=== PATIENT | female | born 2000 | race American Indian/Alaskan Native ===

== ENCOUNTER 2018-05-19 12:06 | Emergency (ER) | payer OTHER ==
--- NOTE | 2018-05-19 13:46 | RAD ---
Indication: Leg edema. Duplex Doppler sonography of the deep venous system of the left lower extremity deep venous system was performed. Bilaterally the common femoral veins appear patent and compressible. Left proximal greater saphenous vein, proximal deep femoral vein, femoral vein, popliteal vein, posterior tibial veins and peroneal veins appear patent and compressible.Right inguinal lymph nodes are noted measuring up to 2.1 x 0.8 cm. IMPRESSION: NO EVIDENCE OF DEEP VENOUS THROMBOSIS IS IDENTIFIED.
--- NOTE | 2018-05-19 14:14 | ED ---
Lower Extremity - HPI Summary HPI Summary: Patient is a 17-year-old female who presents emergency department for severe left leg pain Times 2-3 days. She does not recall any injuries or provocative factors. Pain is intermittent and sharp in nature. Patient states she currently does not have any pain. Denies back pain. She notes she recently started oral control. Symptoms are mild in severity. No current modifying factors. Denies CP or SOB. No past medical hx. Sxs are mild in severity. - History of Current Complaint Chief Complaint: EDExtremityLower Stated Complaint: CALF PAIN IN LEFT LEG Time Seen by Provider: 05/19/18 12:51 Hx Obtained From: Patient Pain Intensity: 3 - Allergies/Home Medications Allergies/Adverse Reactions: Allergies Allergy/AdvReac Type Severity Reaction Status Date / Time No Known Allergies Allergy Verified 05/19/18 12:19 Home Medications: Home Medications NK [No Home Medications Reported] 05/19/18 [History Confirmed 05/19/18] PMH/Surg Hx/FS Hx/Imm Hx Previously Healthy: Yes Infectious Disease History: No Infectious Disease History: Denies: Traveled Outside the [place] in Last 30 Days - Social History Occupation: Student Lives: Dormitory/Roommates Alcohol Use: None Substance Use Type: Reports: None Smoking Status (MU): Never Smoked Tobacco Review of Systems Constitutional: Negative Cardiovascular: Negative Negative: Chest Pain Respiratory: Negative Negative: Shortness Of Breath Positive: Other - Left leg pain Skin: Negative Negative: Rash, Bruising All Other Systems Reviewed And Are Negative: Yes Physical Exam Triage Information Reviewed: Yes Vital Signs On Initial Exam: Initial Vitals Temp Pulse Resp BP Pulse Ox 97.9 F 73 16 124/75 100 05/19/18 12:16 05/19/18 12:16 05/19/18 12:16 05/19/18 12:16 05/19/18 12:16 Vital Signs Reviewed: Yes Appearance: Positive: Well-Appearing - Pt. sitting in chair in NAD. Skin: Positive: Warm, Dry Head/Face: Positive: Normal Head/Face Inspection Eyes: Positive: Normal, EOMI Neck: Positive: Supple Respiratory/Lung Sounds: Positive: Clear to Auscultation, Breath Sounds Present Cardiovascular: Positive: Normal, RRR Musculoskeletal: Positive: Other - Good pedial pulse left foot. No edema. Full ROM of leg without pain. Diagnostics - Vital Signs Vital Signs Temp Pulse Resp BP Pulse Ox 05/19/18 12:16 97.9 F 73 16 124/75 100 - Laboratory Lab Statement: Any lab studies that have been ordered have been reviewed, and results considered in the medical decision making process. Lower Extremity Course/Dx - Course Course Of Treatment: Patient presenting with posterior leg pain, no injury. No pain currently. Given. OC use u/s was obtained to r/o DVT. U/S negative for DVT or findings, per radiology. Results discussed. Suspect muscle strain. Advised ice and elevation. NSAIDs for pain as directed. To follow up with [facility] if pain persists. Return the ER if symptoms change or worsen. Patient understands and agrees with plan. - Diagnoses Differential Diagnosis/HQI/PQRI: Positive: Contusion, DVT, Sprain, Strain Provider Diagnoses: Muscle strain Discharge - Sign-Out/Discharge Documenting (check all that apply): Patient Departure - Discharge Plan Condition: Good Disposition: HOME Patient Education Materials: Muscle Strain (ED) Referrals: [facility] [Outside] Additional Instructions: Schedule an appointment with [facility] for re-evaluation if pain persist Ice and elevate leg NSAIDS for pain as directed Return to ER if symptoms change or worsen - Billing Disposition and Condition Condition: GOOD Disposition: Home
[2018-05-19 14:31] VITALS: BP 118/66
== END 2018-05-19 14:30 | disposition home or self-care (01) ==
LOC: ED 12:06
DX: S86.912A Strain of unspecified muscle(s) and tendon(s) at lower leg level, left leg, initial encounter (principal); X58.XXXA Exposure to other specified factors, initial encounter; Y92.9 Unspecified place or not applicable
CPT/HCPCS: 99282